=== PATIENT | female | born 2000 | race Caucasian/White ===

== ENCOUNTER 2024-11-10 19:14 | Emergency (ER) | payer BC, SELFPAY ==
[2024-11-10 19:21] VITALS: BP 129/90; PULSE 135; RESP 20; TEMP 36.8; O2SAT 98; BMI 18.9
--- NOTE | 2024-11-10 19:23 | ED.PSYCH ---
HPI - Psych General Stated Complaint: crisis Related Data Allergies Allergy/AdvReac Type Severity Reaction Status Date / Time No Known Allergies Allergy Verified 11/10/24 19:24 Course Course Course Narrative: This is an RME: Additional HPI, ROS, PE not included below will be deferred to primary provider. RME assessment and note performed by: Rebeca Chakraborty PA-C This is a 19-[id number]-female, with a hx of GERD, panic disorder, bipolar disorder 2, TRINITY, who presents to the ER with complaints of Just was discharged from [facility] in June. Was in there from mar - june
--- NOTE | 2024-11-10 20:40 | ED_ITS ---
HPI - Psych General Chief Complaint: Psychiatric Symptoms Stated Complaint: crisis Time Seen by Provider: 11/10/24 20:08 Source: patient Mode of arrival: ambulatory Limitations: no limitations History of Present Illness ED Provider: Cierra Card NP HPI Narrative: A 24-year-old female who presents emergency department for evaluation. She states that she has recently been feeling increasingly overwhelmed, having increasing stressors. A lot of her stressors are surrounding her GERD and food anxieties. She states that she has had ongoing issues with food since early high school, she has a lot of burning abdominal pain after eating, has been seen by a colorman as a child diagnosed with GERD, states that she is not currently taking any routine medications aside from Tums and Pepto-Bismol when needed. She does admit that in August of 2024 she had a surgical through [facility], and she feels that her appetite and food anxieties have only worsened since then. She has a decreased appetite, and states that she gets very anxious about how food is going to make her feel and she begins to panic, ultimately stops eating. She also states that she typically vomits at least once weekly from the symptoms this is not abnormal for her. She recently started a new job which she really likes, and she is worried that she may get fired due to calling out when she experiences significant GERD symptoms and/or vomiting. She states that if she loses this job, this would be a significant downward spiral for her, in she has vague suicidal ideations surrounding the potential of losing her job. She denies homicidal ideations. She denies recreational drug or alcohol usage. Denies auditory or visual hallucinations. She has not seen a therapist in approximately 2 years, does not have any psychiatrist. Related Data Previous Rx's ?Medication ?Instructions ?Recorded omeprazole 20 mg capsule,delayed 20 mg PO DAILY #30 caps 11/10/24 release Allergies Allergy/AdvReac Type Severity Reaction Status Date / Time No Known Allergies Allergy Verified 11/10/24 19:24 Review of Systems 2 Review of Systems: Yes all other systems are reviewed and are negative [facility] Past Medical History Attestation statement: The following information was validated with the patient. Source: old records reviewed Social History Social History Alcohol intake: current Alcohol intake frequency: a few times a week Smoked in Last 30 Days: Yes Use of substances other than those prescribed or required for medical reasons: No Advance Directives: No Advance Directives Information Provided: No Patient : No Physical Exam 2 Vital Signs: Vital Signs: Last Vital Signs Temp 99.4 F 11/10/24 22:44 Pulse 117 H 11/10/24 22:44 Resp 16 11/10/24 22:44 BP 134/69 11/10/24 22:44 Pulse Ox 98 11/10/24 22:44 O2 Del Method Room Air 11/10/24 22:44 BMI result Body Mass Index 18.9 Appearance: Alert.?Oriented to person, place and time. No acute distress.?Normal affect. Eyes: Pupils equal, round and reactive to light.? ENT: Pharynx normal.?? Neck: Normal inspection.? Neck supple.?? CVS: Heart sounds normal.? Pulses normal.?? Respiratory: No respiratory distress.? Lung sounds clear to auscultation bilaterally?? Abdomen: Soft and non-tender. Normoactive bowel sounds. Skin: Skin warm and dry.? Normal skin color.? Extremities: No lower extremity edema.? Neuro: Moves all extremities spontaneously. Sensation intact bilaterally. CN II- XII intact. No focal neuro deficits. Ambulates with normal steady gait. Medications Administered Discontinued Medications Generic Name Dose Route Start Last Admin Trade Name Freq PRN Reason Stop Dose Admin Potassium Chloride 40 meq 11/10/24 22:31 11/10/24 22:58 Potassium Chloride Er 20 Meq Tab.Er.Prt PO 11/10/24 22:32 40 meq ONCE ONE Administration Medical Decision Making Medical Decision Making MDM Narrative: Patient is a 24-year-old female who presents emergency department for evaluation of surrounding her GERD symptoms. She endorses vague suicidal ideations strictly situational on a futuristic potential if she would lose her job if her symptoms became to extensive and she had to call out more frequently. She otherwise at this time denies suicidal ideations, denies homicidal ideations. No hallucinations. Denies recreational drug or alcohol usage. She has not seen a colorman nor her PCP for a couple of years therefore is not been taking daily maintenance medication for GERD only Tums and Pepto-Bismol for symptoms. Her abdominal examination was benign I have a low suspicion that she has any acute surgical abdomen, low suspicion for acute hepatobiliary etiology. Reported abdominal symptoms appear most consistent with gastritis, no hematemesis to suggest PUD/esophagitis I feel that she would benefit greatly from using a PPI I will send a prescription for omeprazole to her pharmacy. Differential Diagnosis Differential Diagnoses: The differential diagnosis associated with the presentation includes (See narrative above and below for further detail) Admission/Observation Consideration of admission/observation: Escalation of care including admission/observation considered Patient is being observed in the Emergency Department for and anxiety. Observation time was started at 19:30 on 11/10/2024.?The patient is currently stable and non-toxic appearing. Observation is being initiated in the Emergency Department to allow time to help differentiate if the patient's anxiety is due to Substance Induced Mood Disorder and Anxiety versus Major Depressive Disorder, Bipolar Germaine, Bipolar Depression, and Schizophrenia. The patient will receive frequent psychiatric assessments from the provider as well as from nursing staff. The patient will also be monitored for the need of PRN agitation medications such as Haldol, Ativan, and Benadryl. Observation for this patient ended at 22:29 on 11/10/2024.?The patient was MrShelby from the Emergency Department after observation was completed. Observation care revealed after being evaluated by care team that she does not meet criteria for inpatient level of care at this time, she is going to be referred to [facility] who will perform in home visits over the next few days, and she is provided with a referral for a therapist, patient is self advocating for this at this time as she feels that she would greatly benefit from this Consult Healthcare Provider Management of the patient was discussed with: Behavioral Health Provider (CARE team) Lab Data MDM Lab Attestation statement: I reviewed the patient's lab results. CBC is without leukocytosis anemia or thrombocytopenia. She is mildly hypokalemic for which she received 40 mEq oral replacement for, I suspect that given her GERD this is due to for gastrointestinal intake. No electrolyte derangement. No DEISY. Urinalysis not consistent with urinary tract infection. HCG negative. Toxicology positive only for marijuana. 11/10/24 21:10 11/10/24 21:10 Labs: Lab Results 11/10/24 11/10/24 Range/Units 21:10 21:11 WBC 6.9 (4.8-10.8) X10*3/uL RBC 4.50 (4.20-5.50) X10*6/uL Hgb 12.1 (12.0-16.0) g/dl Hct 36.2 L (37.0-47.0) % MCV 80.4 (80.0-98.0) fL MCH 26.9 L (27.0-33.0) pg MCHC 33.4 (31.0-35.0) g/dl RDW 13.8 (11.0-16.0) % Plt Count 314 (160-400) X10*3/uL MPV 9.7 (9.4-12.3) fL Immature Gran % (Auto) 0.3 (0.0-0.4) % Neut % (Auto) 57.6 (45-73) % Lymph % (Auto) 31.4 (20-40) % [place] % (Auto) 9.3 (2-11) % Eos % (Auto) 0.7 (0-4) % Baso % (Auto) 0.7 (0-2) % Lymph # (Auto) 2.2 (1.2-4.9) X10*3/uL [place] # (Auto) 0.6 (0.1-1.2) X10*3/uL Eos # (Auto) 0.1 (0.0-0.4) X10*3/uL Baso # (Auto) 0.1 (0.0-0.2) X10*3/uL Abs Immat Gran (auto) 0.02 (0.00-0.03) X10*3/uL Absolute Neuts (auto) 3.9 (2.0-8.3) x10*3/uL Absolute Nucleated RBC 0.000 (0.0-0.012) X10*3/uL Nucleated RBC % (auto) 0.0 (0.0-0.2) /100WBC Sodium 135 (135-145) mmol/L Potassium 3.1 L (3.3-5.1) mmol/L Chloride 101 (96-108) mmol/L Carbon Dioxide 26 (22-29) mmol/L Anion Gap 11 L (12-20) BUN 11 (9-16) mg/dL Creatinine 0.70 (0.5-1.4) mg/dL Estim Creat Clear Calc 89.4 Estimated GFR > 60 Random Glucose 106 (60-115) mg/dL Calcium 9.9 (8.4-10.2) mg/dL Magnesium 2.0 (1.6-2.6) mg/dL Total Bilirubin 1.8 H (0.0-1.0) mg/dL Direct Bilirubin 0.6 H (0.0-0.5) mg/dL AST 40 H (5-31) U/L ALT 24 (0-31) U/L Alkaline Phosphatase 65 (39-117) U/L Total Protein 7.6 (6.5-8.0) g/dL Albumin 4.4 (3.5-5.0) g/dL Lipase 54 (8-78) U/L TSH 1.00 (0.32-4.0) uIU/mL Beta HCG, Quant < 2 mIU/mL Urine Color Dark Yellow Urine Appearance Clear Urine pH 6.0 (5.0-9.0) Ur Specific [place] >= 1.030 H (1.005-1.025) Urine Protein 30 (1+) H (Neg-Trace) mg/dL Urine Glucose (UA) Negative (Negative) mg/dL Urine Ketones 15 (Negative) mg/dL Urine Blood Negative (Negative) Urine Nitrite Negative (Negative) Ur Leukocyte Esterase Trace H (Negative) Urine RBC 0-2 (0-2) /HPF Urine WBC 0-5 (0-5) /HPF Ur Squamous Epith Cells 6-10 (0-2) /HPF Urine Bacteria 1+ (None Seen) Hyaline Casts 0-2 (0-2) /LPF Salicylates < 5.0 L (15-30) mg/dL Urine Opiates Screen Not Detected (Not Detect) Ur Buprenorphine Scrn Not Detected (Not Detect) ng/mL Ur Oxycodone Screen Not Detected (Not Detect) ng/mL Urine Methadone Screen Not Detected (Not Detect) ng/mL Urine Fentanyl Screen Not Detected (Not Detect) Acetaminophen < 3 (<30) mcg/mL Ur Barbiturates Screen Not Detected (Not Detect) Ur Phencyclidine Scrn Not Detected (Not Detect) Ur Amphetamines Screen Not Detected (Not Detect) U Benzodiazepines Scrn Not Detected (Not Detect) Urine Cocaine Screen Not Detected (Not Detect) U Marijuana (THC) Screen POSITIVE H (Not Detect) Ethyl Alcohol < 10 mg/dL External Record Review External record reviewed: Outpatient record Prescription Management I considered prescription management with: Pain Medication (Narrative above) Discharge Plan Discharge Clinical Impression: Anxiety, GERD (gastroesophageal reflux disease) Patient Disposition: Home, Self-Care Instructions: Anxiety (ED) Additional Instructions: You have been given a referral to [facility] for further care and establishing a relationship with a therapist. I have also sent a prescription for omeprazole/Prilosec to your pharmacy to take daily at least 30 minutes before the 1st so that you can soon for the day to help decrease your GERD symptoms. You may use the Tums as needed or persistent symptoms. The omeprazole does take a couple of leaves to fully take effect, please use it consistently. Follow-up with primary care doctor. Continue taking all medications as previously prescribed. Return with any new or worsening symptoms or concerns. You were seen in our Emergency Department today for treatment of a behavioral health issue. It is important after your visit that you follow up with either your behavioral health provider or a primary care doctor within 7 days.? If you have trouble finding a therapist you can reach out to [place] [phone] [facility] [place] [facility] can be reached 7 days a week 24 hours a day.? Call [phone] to speak with someone.? Return for any worsening symptoms or concerns such as thoughts of self harm or harm to others. Please call 911 if you feel your mental health is worsening.? Prescriptions: New omeprazole 20 mg capsule,delayed release(DR/EC) 20 mg PO DAILY Qty: 30 0RF Referrals: Physician,Unknown J [Primary Care Provider] - Interventions: [place]-Suicide Risk Severity Scale Last Done: 11/10/24 20:00 ED Discharge Assessment Last Done: 11/10/24 22:44 Discharge Date/Time: 11/10/24 23:11 Print Language: Portuguese
--- NOTE | 2024-11-10 21:17 | PC.NURSE ---
Lisa from care team at bedside.
[2024-11-10 21:26] LABS: MANUAL DIFF FLAG NO
[2024-11-10 21:27] LABS: Basophils Absolute Auto 0.1 X10*3/uL (0.0-0.2); Basophils Percent Auto 0.7 % (0-2); Eosinophils Absolute Auto 0.1 X10*3/uL (0.0-0.4); Eosinophils Percent Auto 0.7 % (0-4); Hematocrit 36.2 % (37.0-47.0); Hemoglobin 12.1 g/dl (12.0-16.0); Imm Gran Abs Auto 0.02 X10*3/uL (0.00-0.03); Imm Gran Pct Auto 0.3 % (0.0-0.4); Lymphocytes Absolute Auto 2.2 X10*3/uL (1.2-4.9); Lymphocytes Percent Auto 31.4 % (20-40); Mean Corpuscular HGB Conc 33.4 g/dl (31.0-35.0); Mean Corpuscular Hemoglobin 26.9 pg (27.0-33.0); Mean Corpuscular Volume 80.4 fL (80.0-98.0); Mean Platelet Volume 9.7 fL (9.4-12.3); Monocytes Absolute Auto 0.6 X10*3/uL (0.1-1.2); Monocytes Percent Auto 9.3 % (2-11); Neutrophils Absolute Auto 3.9 x10*3/uL (2.0-8.3); Neutrophils Percent Auto 57.6 % (45-73); Platelet Count 314 X10*3/uL (160-400); Red Cell Distribution Width 13.8 % (11.0-16.0); White Blood Count 6.9 X10*3/uL (4.8-10.8)
[2024-11-10 21:29] LABS: Appearance Urine Clear; Color Urine Dark Yellow; Glucose Urine UA Negative (Negative); Leukocyte Esterase Urine Trace (Negative); Nitrite Urine Negative (Negative); Specific Gravity - Urine >= 1.030 (1.005-1.025); UMIC TRIGGER UA YES; Urine Blood Negative (Negative); Urine Ketones 15 mg/dL (Negative); Urine Protein 30 (1+) mg/dL (Neg-Trace)
[2024-11-10 21:31] LABS: Bacteria Urine 1+ (None Seen); Hyaline Casts Urine 0-2 /LPF (0-2); RBC Urine 0-2 /HPF (0-2); WBC Urine 0-5 /HPF (0-5)
[2024-11-10 21:38] LABS: Amphetamine Screen Urine Not Detected (Not Detect); Barbiturates, Urine Not Detected (Not Detect); Benzodiazepines Screen Urine Not Detected (Not Detect); Buprenorphine Scr Not Detected (Not Detect); Cannabinoid Screen Urine POSITIVE (Not Detect); Cocaine Screen Urine Not Detected (Not Detect); Fentanyl, urine Not Detected (Not Detect); Methadone Screen, Urine Not Detected (Not Detect); Opiate Screen Urine Not Detected (Not Detect); Oxycodone Screen Urine Not Detected (Not Detect); Phencyclidine Screen Urine Not Detected (Not Detect)
[2024-11-10 21:56] LABS: Acetaminophen LAB < 3 mcg/mL (<30); Salicylate < 5.0 mg/dL (15-30)
[2024-11-10 22:02] LABS: Alanine Aminotransferase 24 U/L (0-31); Albumin Level 4.4 g/dL (3.5-5.0); Alkaline Phosphatase 65 U/L (39-117); Anion Gap 11 (12-20); Aspartate Amino Transferase 40 U/L (5-31); Bilirubin Direct 0.6 mg/dL (0.0-0.5); Bilirubin Total 1.8 mg/dL (0.0-1.0); Blood Urea Nitrogen 11 mg/dL (9-16); Calcium 9.9 mg/dL (8.4-10.2); Carbon Dioxide 26 mmol/L (22-29); Chloride 101 mmol/L (96-108); Creatinine Clr Calc Pharmacy 89.4; Estimated Glomerular Filt Rate > 60; Ethanol < 10 mg/dL; Glucose Random 106 mg/dL (60-115); Lipase 54 U/L (8-78); Potassium 3.1 mmol/L (3.3-5.1); Sodium 135 mmol/L (135-145); Total Protein 7.6 g/dL (6.5-8.0)
[2024-11-10 22:17] LABS: HCG Quantitative < 2 mIU/mL
[2024-11-10 22:30] VITALS: BP 134/69; PULSE 117; RESP 16; TEMP 37.4; O2SAT 98
[2024-11-10 22:44] VITALS: BP 134/69; PULSE 117; RESP 16; TEMP 37.4; O2SAT 98
[2024-11-10] MEDS: Potassium Chloride ER 20 MEQ TAB.ER.PRT 40 MEQ PO (22:58)
== END 2024-11-10 23:11 | disposition home or self-care (01) ==
PROVIDERS: Physician Assistant Medical; Emergency Provider Emergency Medicine Emergency Medical Services
DX: R45.851 Suicidal ideations (principal); F41.1 Generalized anxiety disorder; F43.0 Acute stress reaction; K21.9 Gastro-esophageal reflux disease without esophagitis; R10.2 Pelvic and perineal pain; F43.9 Reaction to severe stress, unspecified; Z51.81 Encounter for therapeutic drug level monitoring; Z79.899 Other long term (current) drug therapy
CPT/HCPCS: 36415; 80048; 80076; 80143; 80179; 80307; 81001; 83690; 83735; 84443; 84702; 85025; 99284; 99285; S9485